=== PATIENT | female | born 1980 | race Caucasian/White ===

== ENCOUNTER → 2022-08-18 | Outpatient (CLI) | payer BC | LOC: M WHC 16:13 | PROVIDERS: ATTEND Obstetrics & Gynecology | DX: Z12.31 Encounter for screening mammogram for malignant neoplasm of breast (principal) ==

== ENCOUNTER → 2022-09-01 | Outpatient (CLI) | payer BC | LOC: M WHC 09:05 | PROVIDERS: ATTEND Obstetrics & Gynecology | DX: R92.2 Inconclusive mammogram (principal); N63.11 Unspecified lump in the right breast, upper outer quadrant | CPT/HCPCS: 76642; 77065; G0279 ==